=== PATIENT | male | born 1955 | race Caucasian/White ===

== ENCOUNTER 2018-11-19 05:23 | Day surgery (SDC) | payer OTHER ==
[~2018-11-19] VITALS: Ht 177.8 cm; Wt 84.4 kg
[2018-11-19 08:24] VITALS: BP 145/81; Ht 177.8 cm; Wt 84.4 kg
[2018-11-19 09:25] LABS: BASOPHILS 0.9 % (0-2); EOSINOPHILS 5.1 % (0-7); HEMATOCRIT 41.2 % (42.0-54.0); HEMOGLOBIN 14.1 g/dL (13.5-17.5); IMMATURE GRANULOCYTES 0.3 % (0-5); LYMPHOCYTES 11.3 % (15-50); MCH 30.7 pg (26.0-34.0); MCHC 34.2 g/dL (31.0-37.0); MCV 89.6 fL (80.0-100.0); MEAN PLATELET VOLUME 10.5 fL (7.4-10.4); MONOCYTES 11.3 % (2-11); NEUTROPHILS 71.1 % (40-80); PLATELET COUNT 245 10x3/uL (130-400); RDW 14.6 % (11.5-14.5); WBC 6.5 10x3/uL (4.8-10.8)
[2018-11-19 09:32] LABS: CALC OSMOLALITY 282 mosm/kg (275-300); CALCIUM 9.1 mg/dL (8.5-10.1); CARBON DIOXIDE 31.2 mmol/L (21.0-32.0); CHLORIDE - SERUM 105 mmol/L (98-107); CREATININE - SERUM 0.8 mg/dL (0.6-1.3); GLUCOSE 117 mg/dL (74-106); POTASSIUM - SERUM 4.1 mmol/L (3.5-5.1); SODIUM 141 mmol/L (136-145); UREA NITROGEN 16 mg/dL (7-18); eGFR NON AFRICAN AMERICAN > 90 mL/min (90-120)
--- NOTE | 2018-11-19 15:31 | NUR ---
SINUS ARRHYTHMIA NOTED. PT ASYMPTOMATIC.
--- NOTE | 2018-11-19 17:35 | NUR ---
[id number] REPORT RECEIVED FROM ANDREY BECERRA RN.
--- NOTE | 2018-11-21 17:12 | OP ---
PATIENT NAME: JOSE BOUCHER MEDICAL RECORD: [id number] LOCATION:D.OPS ADMISSION DATE: SURGEON: MATTHEW PEARCE MD DATE OF OPERATION: 11/19/2018 PREOPERATIVE DIAGNOSIS: Symptomatic huge left inguinal hernia, incarcerated. POSTOPERATIVE DIAGNOSIS: Symptomatic huge left indirect inguinal hernia, incarcerated. PROCEDURES: Open left indirect inguinal hernia repair with bilayer preperitoneal polypropylene mesh as well as onlay mesh around the cord structures, which was also polypropylene. SURGEON: Matthew Pearce MD MANAGER OF TRANSPORTATION: None. BLOOD LOSS: 100 cc. ANESTHESIA: General. COMPLICATIONS: None. The risks, possible complications, and alternatives to the procedure were explained to the patient. He elects to proceed. The discussion specifically included, but was not limited to, bleeding requiring emergency reoperation; the probability of a hematoma or a pseudo sac seroma; the possible need for left orchiectomy; the possible need for debulking of the left scrotum as it is very stretched. OPERATIVE COURSE: The patient was conveyed to the operating room electively on 11/19/2018. General anesthesia was induced by the anesthesia staff. The abdomen and genitals were sterilely prepped and draped. A transverse incision was accomplished in the left groin. Sharp dissection was carried down through skin and subcutaneous tissue as well as Jason's fascia. Essentially, the hernia had blown out the left inguinal floor. I mobilized the cord structures from outside the external oblique. I incised the hernia sac. I was able to mobilize all the incarcerated contents which consisted only of greater omentum. This was removed utilizing the Super Jaw EnSeal device. I then reperitonealized the sliding hernia with a pursestring 3-0 Vicryl suture. The sliding component was colon. I then reduced the tied off portion of the hernia sac into the preperitoneal space after excising the redundant sac. I then approached the hernia repair from the preperitoneal approach. I incised the external oblique aponeurosis along the direction of its fibers. I bluntly dissected down through the internal oblique and transverse abdominis muscle layers. A preperitoneal pocket was fashioned bluntly. Two ovals of polypropylene were then cut out and sutured one on top of the other with a running #1 Ethibond. OPERATIVE REPORT [id number] JOSE BOUCHER A mesh was placed in the preperitoneal space. Once I was satisfied with placement of the mesh, I sutured the internal oblique and transverse abdominis muscles together with multiple interrupted horizontal mattress #0 Surgidacs. At no time was there any apparent nerve injury during this procedure. I then tightened the external oblique aponeurosis around the cord structures in order to tighten up the external canal. I then reapproximated the external oblique aponeurosis with running #1 Vicryl. I wanted to place an onlay patch. I cut this out and it had 2 tails on one end. I wrapped the tails around the cord structures and then sutured the 2 tails together with multiple interrupted #0 Ethibonds. I sutured the onlay mesh down to the underlying external oblique aponeurosis with multiple #1 Vicryls. I documented arterial flow into left testicle by palpation. The Jason's fascia was reapproximated with interrupted 3-0 Vicryl. The subdermis was reapproximated with interrupted 3-0 Vicryl. The skin was reapproximated with a running intracuticular 3-0 Vicryl. Benzoin and Steri-Strips were applied. The patient was then extubated and conveyed to the postanesthesia care unit, where he was in stable condition. TRANSINT:[id number] Voice Confirmation ID: [id number] DOCUMENT ID: [id number] MATTHEW PEARCE MD at 1712 CC: [email or web address] GARCIA [id number] DICTATION DATE: 11/19/18 1440 MAINTENANCE PLANNER: 11/19/18 1550 [facility] [place] 11/19/18 [id number] [place] [address]
== END 2018-11-19 17:20 | disposition home or self-care (01) ==
LOC: D.OPS 05:23 → EDBD 05:23 → D.OPS 08:00
PROVIDERS: Anesthesiology; ATTEND Surgery
DX: K40.30 Unilateral inguinal hernia, with obstruction, without gangrene, not specified as recurrent (principal); Z01.812 Encounter for preprocedural laboratory examination